=== PATIENT | female | born 1990 | race African-American/Black ===

== ENCOUNTER 2017-06-15 08:25 | Inpatient (IN) ==
[2017-06-15] MEDS ORDERED: BUTORPHANOL 1 MG/ML VIAL IV PRN (09:14)
[2017-06-15] MEDS ORDERED: LACTATED RINGERS 1,000 ML IV PRN (09:14)
[2017-06-15] MEDS ORDERED: MEPERIDINE 50 MG/1 ML VIAL IM PRN (09:14)
[2017-06-15] MEDS ORDERED: ONDANSETRON 4 MG/2 ML VIAL IV PRN (09:14)
[2017-06-15] MEDS ORDERED: PROMETHAZINE 25 MG/1 ML VIAL IM ONE (09:26)
[2017-06-15] MEDS ORDERED: fentaNYL 2 MCG/ROPIV 0.2% EPID 150 ML EPIDURAL SCH (09:26)
[2017-06-15] MEDS ORDERED: ePHEDrine 50 MG/ML AMP IV PRN (09:26)
[2017-06-15] MEDS ORDERED: FAMOTIDINE 20 MG/2 ML VIAL IV ONE (09:26)
[2017-06-15] MEDS ORDERED: diphenhydrAMINE 50 MG/1 ML VIAL IV PRN (09:26)
[2017-06-15] MEDS ORDERED: CITRIC ACID/SODIUM CITRATE 30 ML UDCUP PO ONE (09:26)
[2017-06-15] MEDS ORDERED: OXYTOCIN/LR 20 UNIT/1,000 ML BAG IV SCH (09:30)
[2017-06-15 09:42] LABS: Basophils % 0.3 % (0.0-0.8); Eosinophils # 0.1 10*3/uL (0.0-0.87); Eosinophils % 0.9 % (0.00-10.9); Hematocrit 38.5 VOL% (35.7-47.0); Hemoglobin 12.8 GM/DL (12.0-16.0); Immature Granulocytes % 0.3 %; Immature Granulocytes Absolute 0.02 #; Lymphocytes # 1.8 10*3/uL (1.4-4.0); Lymphocytes % 26.1 % (21.3-54.2); Mean Corpuscular HGB Conc 33.2 GM/DL (32-36); Mean Corpuscular Hemoglobin 30 PG (27-34); Mean Corpuscular Volume 91.2 FL (87-102); Mean Platelet Volume 11.8 FL (9.6-12.0); Monocytes # 0.7 10*3/uL (0.11-0.8); Monocytes % 10.4 % (1.7-12.7); Neutrophils # 4.2 10*3/uL (1.4-7.4); Platelet Count 158 T/CUMM (130-400); Red Blood Count 4.22 MC/CUMM (3.8-5.5); Red Cell Distribution Width 13.9 % (9.3-17.3); White Blood Count 6.7 T/CUMM (4-12)
[2017-06-15 10:02] LABS: Eosinophils 1 % (0-10); Giant Platelets Few; Hypochromasia 1+; Lymphocytes 23 % (20-55); Platelet Estimate Normal; Segmented Neutrophils 65 % (50-85); Total Cells Counted 100
[2017-06-15] MEDS: LACTATED RINGERS 1,000 ML IV SCH ×2 (10:06→12:47)
[2017-06-15 10:20] LABS: Albumin 2.8 G/DL (3.4-5.0); Bilirubin,Total 0.4 MG/DL (0.2-1.0); Calcium 9.3 MG/DL (8.5-10.1); Osmolality,Calculated 270.7 MOS/KG (273-304); Potassium 3.9 MMOL/L (3.5-5.1); Total Protein 7.2 G/DL (6.4-8.3); Uric Acid 4.1 MG/DL (2.6-6.0)
[2017-06-15] MEDS ORDERED: AMPICILLIN INJ 2,000 MG in SODIUM CHLORIDE 0.9% 100 ML IV ONE (14:26)
--- NOTE | 2017-06-15 15:20 | OB/GYN History & Physical ---
History of Present Illness Chief complaint: IN FOR ELECTIVE INDUCTION OF LABOR History of present illness: Ms. Gutierrez is a 26 year old female or complaints of uterine contractions and active labor. The risk and benefits were thoroughly discussed with this patient and significant other, plan of care was discussed with Dr. Acosta and all parties are in agreement with plan. The patient received her care through the [facility], she received routine care and her course was uneventful. She has had 2 previous vaginal deliveries and her largest infant weighed 7 pounds and 3 ounces she reported no complications with either . The patient's history is also significant for a spontaneous AB. labs: She is O+, RPR is nonreactive, hepatitis B negative rubella is immune, GBS culture negative. Review of systems is negative. Home Medications Medication Instructions Recorded Confirmed Type Pnv with Ca,No.71/Iron/FA 1 tablet PO DAILY 06/06/15 06/15/17 History [ Vitamin Tablet] Allergies Allergy/AdvReac Type Severity Reaction Status Date / Time No Known Allergies Allergy Verified 01/27/17 23:30 12 point system: reviewed and no additional remarkable complaints except as stated Medical,Surgical,& Family Hx - Medical History Medical History: noncontributory Reproductive: History of: Sexually Transmitted Disorders (CHLAMYDIA 2012) No history of: Ectopic , Complication Other: History of: Miscellaneous Medical Problems (4 pregnancies in the last 2 years) - Surgical History Surgical History: noncontributory Thoracic Surgeries: Patient denies;: Organ Transplant Reproductive Surgeries: Patient denies;: Section - Family History Family History: Reports;: Family Cancer (PATERNAL AUNT LUNG), Family Heart Disease (CHF MATERL GR MOM), Family Hypertension (PATERNAL GR.MOM AND DAD AND ALSO DAD) - Social History Smoking Status: Never smoker Frequency of Alcohol Use: None Type of Drug Use: None 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 - Constitutional Vitals: Vital Signs Temp Pulse Resp BP Pulse Ox 06/15/17 12:00 98 F 74 24 117/61 100 General appearance: normal weight - Antepartum / Post Antepartum Exam Cervix - Dilatation: 5-6 CM Effacement: 90% Station: -2 Rupture: INTACT Presentation: VTX Heart Rate: 140S Breast: bilateral: normal Abdomen obstetrics: Present: bowel sounds normal Vagina: Present: normal moisture, discharge (BLOODY SHOW) Uterus exam: Present: enlarged - Head Head exam: Present: normal inspection - Respiratory Respiratory exam: Present: clear to auscultation bilaterally - Cardiovascular Cardiovascular exam: Present: regular rate and rhythm - GI/Abdominal GI/Abdominal exam: Present: normal bowel sounds - Extremities Exam Extremities exam: Present: normal inspection - Back Exam Back exam: Present: normal inspection - Neurological Exam Neurological exam: Present: alert, oriented X3 - Psychiatric Psychiatric exam: Present: normal affect, normal mood - Skin Skin exam: Present: normal color, warm Assessment and Plan (1) Active labor Status: Acute Assessment and plan: ADMIT IV FLUIDS IV PITOCIN PER PROTOCOL EPIDURAL IF DESIRED AROM ANTICIPATE Current Visit: Yes Results - Labs CBC & BMP: 06/15/17 09:34 06/15/17 09:34 Quality Measures - VTE Contraindication to Pharmacological VTE Prophylaxis: Clinical assessment deems Pt at low risk, no prophalaxis needed
[2017-06-15] MEDS ORDERED: METHYLERGONOVINE 0.2 MG/1 ML AMP ONE (16:18)
[2017-06-15] MEDS ORDERED: CARBOPROST TROMETHAMINE 250 MCG/ML AMP IM ONE (16:18)
--- NOTE | 2017-06-15 17:23 | Event Note ---
HPI: Patient presented to the labor department in active labor. She was admitted for management of labor. The risks and benefits were thoroughly discussed with this patient and her significant other. All parties were in agreement with plan of care. Stage I: The patient was admitted she received IV fluids and IV Pitocin per protocol. She also had her membranes ruptured artificially and had clear fluid noted. She progressed in labor her tracing was a cat 1. She eventually got an epidural for pain control. The patient had a few episodes of a cat 2 tracing. She received oxygenation and position change. At some time doing her labor her Pitocin was discontinued so that she had an opportunity to recover from the cat 2 tracing. When it was determined that her fetus was stable the Pitocin was resumed and she continued to progress in labor. Stage II: Patient was complete she pushed for approximately 1 hour. The ' s head rotated and then presented at a +3 station. The patient pushes approximately 2 more times after which time the 's head was delivered. The mouth and nose were suctioned on perineum. The remainder the was delivered at 1710 a viable male was noted. The had a terminal meconium stool. Apgars were 8 at 1 minute and 9 at 5 minutes. weight was 7 lbs. 13 oz. Cord pH was obtained and sent to the lab. The was placed with the mother for skin to skin bonding. Stage III: Spontaneous delivery of cells placenta with a three-vessel cord noted. The placental site examined. Grossly intact. The vagina and cervix inspected with no tears lacerations noted. Estimated blood loss was approximately 100 cc. At the time of dictation mother and baby are stable.
[2017-06-15] MEDS ORDERED: ACETAMINOPHEN/CODEINE 300-30 MG TABLET PO PRN (17:24)
[2017-06-15 17:37] LABS: Cord Venous Blood HCO3 21.3 MMOL/L; Cord Venous Blood PCO2 59.6 MMHG; Cord Venous Blood PO2 20.8
[2017-06-15] MEDS ORDERED: MEASLES/MUMPS/RUBELLA VACCINE 0.5 ML VIAL SUBCUT ONE (21:27)
[2017-06-15] MEDS ORDERED: oxyCODONE/ACETAMINOPHEN 5-325 MG TABLET PO PRN (21:27)
[2017-06-15] MEDS ORDERED: HYDROCORTISONE 2.5% RECTAL CREAM 30 GM TUBE TOP PRN (21:27)
[2017-06-15] MEDS ORDERED: LANOLIN 50% CREAM 0.3 OZ TUBE TOP PRN (21:27)
[2017-06-15] MEDS ORDERED: WITCH HAZEL PADS 100/JAR TOP PRN (21:27)
[2017-06-15] MEDS ORDERED: RHO(D) IMMUNE GLOBULIN 300 MCG SYRINGE IM ONE (21:27)
[2017-06-15] MEDS ORDERED: BISACODYL 10 MG SUPP RECTAL PRN (21:27)
[2017-06-15] MEDS ORDERED: ACETAMINOPHEN 325 MG TABLET PO PRN (21:27)
[2017-06-15] MEDS ORDERED: DIPH/TET/ACEL PERT BOOSTER VACCINE 0.5 ML VIAL IM ONE (21:27)
[2017-06-15] MEDS ORDERED: BENZOCAINE 20%/MENTHOL 0.5% SPRAY 56 GM CAN TOP PRN (21:27)
[2017-06-15] MEDS: DOCUSATE SODIUM 100 MG CAPSULE PO SCH (23:40)
[2017-06-16] MEDS: oxyCODONE/ACETAMINOPHEN 5-325 MG TABLET PO PRN ×2 (03:44→17:41)
[2017-06-16] MEDS: IBUPROFEN 800 MG TABLET PO PRN (03:44)
[2017-06-16] MEDS: DOCUSATE SODIUM 100 MG CAPSULE PO SCH ×2 (09:31→21:33)
[2017-06-16 10:44] LABS: Basophils % 0.1 % (0.0-0.8); Eosinophils # 0.2 10*3/uL (0.0-0.87); Eosinophils % 2.1 % (0.00-10.9); Hematocrit 33.3 VOL% (35.7-47.0); Hemoglobin 11.1 GM/DL (12.0-16.0); Immature Granulocytes % 0.3 %; Immature Granulocytes Absolute 0.03 #; Lymphocytes # 2.1 10*3/uL (1.4-4.0); Lymphocytes % 23.4 % (21.3-54.2); Mean Corpuscular HGB Conc 33.3 GM/DL (32-36); Mean Corpuscular Hemoglobin 31 PG (27-34); Mean Corpuscular Volume 92.8 FL (87-102); Mean Platelet Volume 11.9 FL (9.6-12.0); Monocytes # 0.9 10*3/uL (0.11-0.8); Monocytes % 9.5 % (1.7-12.7); Neutrophils # 5.8 10*3/uL (1.4-7.4); Neutrophils % 64.6 % (38.7-73.9); Platelet Count 134 T/CUMM (130-400); Red Blood Count 3.59 MC/CUMM (3.8-5.5); Red Cell Distribution Width 14.1 % (9.3-17.3)
[2017-06-17] MEDS: IBUPROFEN 800 MG TABLET PO PRN (03:48)
[2017-06-17] MEDS: oxyCODONE/ACETAMINOPHEN 5-325 MG TABLET PO PRN (03:48)
--- NOTE | 2017-06-17 07:08 | Anesthesia Post-Op ---
Anesthesia Post OP - Post Ansesthetic Evaluation Patient seen in post op: Yes Resp: within normal limits CV: within normal limits Mental: within normal limits Temp: within normal limits [id number]: within normal limits Nausea and Vomiting: within normal limits Pain: within normal limits
[2017-06-17 07:33] VITALS: BP 109/72
[2017-06-17] MEDS: DOCUSATE SODIUM 100 MG CAPSULE PO SCH (09:30)
--- NOTE | 2017-06-17 09:36 | OB/GYN Progress Note ---
Assessment and Plan (1) Active labor Status: Acute Assessment and plan: ADMIT IV FLUIDS IV PITOCIN PER PROTOCOL EPIDURAL IF DESIRED AROM ANTICIPATE Current Visit: Yes (2) Vaginal delivery Status: Acute Assessment and plan: Routine orders. 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 Bonding well with infant. Exam MICROSYSTEMS ENGINEER - Constitutional Vitals: Vital Signs Temp Pulse Resp BP Pulse Ox 06/17/17 07:33 97.3 F L 74 20 109/72 97 06/17/17 03:48 97.2 F L 86 20 110/59 99 06/17/17 00:15 97.6 F 76 18 115/56 97 06/16/17 19:55 97.8 F 85 20 116/72 98 06/16/17 18:00 20 06/16/17 15:32 98 F 88 20 110/69 98 06/16/17 15:20 20 06/16/17 14:00 20 06/16/17 12:00 20 06/16/17 11:26 98.3 F 75 20 99/50 98 06/16/17 10:00 18 General appearance: no acute distress - Antepartum / Post Post Exam Breast: bilateral: normal Abdomen obstetrics: Present: bowel sounds normal Vagina: Present: normal moisture, discharge (Light lochia rubra) Anus/Rectum: Present: normal perianal skin - Respiratory Respiratory exam: Present: clear to auscultation bilaterally - Cardiovascular Cardiovascular exam: Present: regular rate and rhythm - GI/Abdominal GI/Abdominal exam: Present: normal bowel sounds, soft - Extremities Exam Extremities exam: Present: normal inspection - Neurological Exam Neurological exam: Present: alert, oriented X3 - Psychiatric Psychiatric exam: Present: normal affect, normal mood - Skin Skin exam: Present: normal color, warm Results - Labs CBC & BMP: 06/16/17 10:30 06/15/17 09:34
--- NOTE | 2017-06-17 09:39 | Discharge Summary ---
Hospital Course - Hospital Course Hospital Course: Ms. Gutierrez presented for elective induction of labor due to term . She subsequently delivered a viable with no complications. She has followed a normal course and she has done well. Her bleeding is minimal with no odor. Her vital signs are stable. Her lab values are stable. She is bonding well with her infant. Her fundus is firm and midline. Her perineum is intact. She will be discharged to home with prescriptions for pain and a follow-up appointment in our office. Contraception options has been discussed, patient is undecided of a method at this time. Diagnosis - Discharge Diagnosis (1) Active labor Status: Acute (2) Vaginal delivery Status: Acute Specialty Discharge - Follow Up or Referrals Follow up with: Damien Acosta MD [Primary Care Provider] - (Follow-up in 6 weeks.) Discharge Plan - Discharge Data Disposition: Disch To Home/Self Care Condition at Discharge: Stable Discharge Diet: advance to your usual diet Activity: resume usual activities as tolerated Hygiene: no restrictions Weight Bearing at Discharge: weight bear as tolerated Driving: no restrictions Contact your physician if you experience:: fever over 101, Bleeding, pain uncontrolled by pain medications - Discharge Medications New Acetamin/Codeine 300-30 Tab [Tylenol/Codeine #3] 2 tablet PO Q4H PRN #30 tablet PRN Reason: Pain Mild (1-3) Ibuprofen Tab [Motrin Tab] 800 mg PO Q6H PRN #30 tablet PRN Reason: Pain Moderate (4-7) No Action Pnv with Ca,No.71/Iron/FA [ Vitamin Tablet] 1 tablet PO DAILY - Follow Up or Referral - Forms/Instructions Exam - Constitutional Vitals: Period Temp Pulse Resp BP Sys/Perez Pulse Ox Last 24 Hr 97.2 F-98.3 F 74-88 18-20 99-116/50-72 97-99 General appearance: no acute distress - Respiratory Respiratory exam: Present: clear to auscultation bilaterally - Cardiovascular Cardiovascular exam: Present: regular rate and rhythm - GI/Abdominal GI/Abdominal exam: Present: normal bowel sounds, soft - Back Exam Back exam: Present: normal inspection - Neurological Exam Neurological exam: Present: alert, oriented X3 - Psychiatric Psychiatric exam: Present: normal affect, normal mood - Skin Skin exam: Present: normal color, warm Discharge Results Procedures and tests throughout hospitalization: Pending Orders 06/15/17 09:14 Urinalysis Routine Labs on day of discharge: Labs from last 24 hours 06/16/17 10:30 WBC 9.0 D RBC 3.59 L Hgb 11.1 L Hct 33.3 L MCV 92.8 MCH 31 MCHC 33.3 RDW 14.1 Plt Count 134 MPV 11.9 Neut % (Auto) 64.6 Lymph % (Auto) 23.4 [place] % (Auto) 9.5 Eos % (Auto) 2.1 Baso % (Auto) 0.1 Neut # (Auto) 5.8 Lymph # (Auto) 2.1 [place] # (Auto) 0.9 H Eos # (Auto) 0.2 Baso # (Auto) 0.0 Immature Gran % 0.3 Nucleated RBC % 0.0 Immature Gran # 0.03 Nucleated RBCs # 0.00 Immature Plt Fraction 0.0 DS: Provider Date of admission: 06/15/17 09:14 Primary care physician: Damien Acosta MD Attending physician on admission: Damien Acosta MD Consults: 06/15/17 09:14 Consult to Anesthesiology [CONS] Routine Consulting Provider: Reason for Anesthesiology: Epidural Consult Comment: Epidural for pain managment 06/15/17 21:27 Consult to Matrix Bath Attendant [CONS] Routine Consult Matrix Bath Attendant: Breast Feeding Discharging clinician: Sinai Holland CNM Expected date of discharge: 06/17/17
[2017-06-17] MEDS ORDERED: DIPH/TET/ACEL PERT BOOSTER VACCINE 0.5 ML VIAL IM ONE (11:25)
== END 2017-06-17 15:30 | disposition home or self-care (01) | DRG 560 ==
LOC: N.LDOUT 08:25 → N.LD 08:26 → N.OB 21:26
PROVIDERS: ADMIT Obstetrics & Gynecology; ATTEND Obstetrics & Gynecology

== ENCOUNTER 2018-09-06 06:52 | Inpatient (IN) ==
[2018-09-06] MEDS ORDERED: ONDANSETRON 4 MG/2 ML VIAL IV PRN (07:10)
[2018-09-06] MEDS ORDERED: BUTORPHANOL 1 MG/ML VIAL IV PRN (07:10)
[2018-09-06] MEDS ORDERED: MEPERIDINE 50 MG/1 ML VIAL IV PRN (07:10)
[2018-09-06] MEDS ORDERED: LACTATED RINGERS 1,000 ML IV ONE (07:10)
[2018-09-06] MEDS ORDERED: LACTATED RINGERS 500 ML IV PRN (07:10)
[2018-09-06 07:32] LABS: Basophils % 0.2 % (0.0-0.8); Eosinophils % 0.5 % (0.00-10.9); Hematocrit 38.6 VOL% (35.7-47.0); Hemoglobin 12.3 GM/DL (12.0-16.0); Immature Granulocytes % 0.2 %; Immature Granulocytes Absolute 0.01 #; Lymphocytes # 1.6 10*3/uL (1.4-4.0); Lymphocytes % 27.6 % (21.3-54.2); Mean Corpuscular HGB Conc 31.9 GM/DL (32-36); Mean Corpuscular Hemoglobin 30 PG (27-34); Mean Corpuscular Volume 93.9 FL (87-102); Mean Platelet Volume 12.2 FL (9.6-12.0); Monocytes # 0.8 10*3/uL (0.11-0.8); Monocytes % 13.8 % (1.7-12.7); Neutrophils # 3.4 10*3/uL (1.4-7.4); Neutrophils % 57.7 % (38.7-73.9); Platelet Count 152 T/CUMM (130-400); Red Blood Count 4.11 MC/CUMM (3.8-5.5); Red Cell Distribution Width 13.8 % (9.3-17.3); White Blood Count 5.9 T/CUMM (4-12)
[2018-09-06] MEDS: LACTATED RINGERS 1,000 ML IV SCH ×3 (07:35→14:22)
[2018-09-06] MEDS ORDERED: NALOXONE 0.4 MG/ML VIAL IV PRN (07:50)
[2018-09-06] MEDS ORDERED: CITRIC ACID/SODIUM CITRATE 30 ML UDCUP PO ONE (07:50)
[2018-09-06] MEDS ORDERED: hydrOXYzine HCL 25 MG/1 ML VIAL IM PRN (07:50)
[2018-09-06] MEDS ORDERED: ePHEDrine 50 MG/ML AMP IV PRN ×2 (07:50)
[2018-09-06] MEDS ORDERED: PROMETHAZINE 25 MG/1 ML VIAL IM ONE (07:50)
[2018-09-06] MEDS ORDERED: diphenhydrAMINE 50 MG/1 ML VIAL IV PRN (07:50)
[2018-09-06] MEDS ORDERED: FAMOTIDINE 20 MG/2 ML VIAL IV ONE (07:50)
[2018-09-06] MEDS ORDERED: fentaNYL 2 MCG/ROPIV 0.2% EPID 100 ML EPIDURAL SCH (08:00)
[2018-09-06] MEDS: OXYTOCIN/LR 20 UNIT/1,000 ML BAG IV SCH ×2 (08:02→15:48)
[2018-09-06 08:03] LABS: Alanine Aminotransferase 18 U/L (13-56); Albumin 2.6 G/DL (3.4-5.0); Alkaline Phosphatase 150 U/L (45-117); Aspartate Amino Transferase 24 U/L (0-37); Bilirubin,Total < 0.39 MG/DL (0.2-1.0); Blood Urea Nitrogen 9 MG/DL (7-18); Calcium 8.8 MG/DL (8.5-10.1); Glucose 95 MG/DL (74-106); Osmolality,Calculated 271.8 MOS/KG (273-304); Potassium 3.8 MMOL/L (3.5-5.1); Sodium 137 MMOL/L (136-145); Total Protein 7.5 G/DL (6.4-8.3); Uric Acid 4.1 MG/DL (2.6-6.0)
[2018-09-06] MEDS ORDERED: miSOPROStol 200 MCG TABLET ONE (10:29)
[2018-09-06] MEDS ORDERED: CARBOPROST TROMETHAMINE 250 MCG/ML AMP IM ONE (10:30)
[2018-09-06] MEDS ORDERED: METHYLERGONOVINE 0.2 MG/1 ML AMP ONE (10:30)
[2018-09-06 13:25] LABS: Cord Venous Blood HCO3 22.6 MMOL/L; Cord Venous Blood PCO2 51.2 MMHG; Cord Venous Blood PO2 28.6
[2018-09-06] MEDS ORDERED: HYDROCORTISONE 2.5% RECTAL CREAM 30 GM TUBE TOP PRN (15:09)
[2018-09-06] MEDS ORDERED: ACETAMINOPHEN/CODEINE 300-30 MG TABLET PO PRN (15:09)
[2018-09-06] MEDS ORDERED: BENZOCAINE 20%/MENTHOL 0.5% SPRAY 56 GM CAN TOP PRN (15:09)
[2018-09-06] MEDS ORDERED: oxyCODONE/ACETAMINOPHEN 5-325 MG TABLET PO PRN ×2 (15:09)
[2018-09-06] MEDS ORDERED: ACETAMINOPHEN 325 MG TABLET PO PRN (15:09)
[2018-09-06] MEDS ORDERED: BISACODYL 10 MG SUPP RECTAL PRN (15:09)
[2018-09-06] MEDS ORDERED: WITCH HAZEL PADS 100/JAR TOP PRN (15:09)
[2018-09-06] MEDS ORDERED: LANOLIN 50% CREAM 0.3 OZ TUBE TOP PRN (15:09)
[2018-09-06] MEDS ORDERED: MEASLES/MUMPS/RUBELLA VACCINE 0.5 ML VIAL SUBCUT ONE (15:30)
[2018-09-06] MEDS ORDERED: DIPH/TET/ACEL PERT BOOSTER VACCINE 0.5 ML VIAL IM ONE (15:30)
[2018-09-06] MEDS ORDERED: RHO(D) IMMUNE GLOBULIN 300 MCG SYRINGE IM ONE (15:30)
[2018-09-06] MEDS ORDERED: OXYTOCIN/LR 20 UNIT/1,000 ML BAG IV ONE (15:43)
[2018-09-06] MEDS: IBUPROFEN 800 MG TABLET PO PRN (15:47)
[2018-09-06] MEDS: DOCUSATE SODIUM 100 MG CAPSULE PO SCH (21:49)
[2018-09-07] MEDS: IBUPROFEN 800 MG TABLET PO PRN ×3 (03:36→21:42)
[2018-09-07 05:36] LABS: Basophils % 0.4 % (0.0-0.8); Eosinophils # 0.2 10*3/uL (0.0-0.87); Eosinophils % 2.3 % (0.00-10.9); Hematocrit 37.2 VOL% (35.7-47.0); Hemoglobin 11.9 GM/DL (12.0-16.0); Immature Granulocytes % 0.3 %; Immature Granulocytes Absolute 0.02 #; Lymphocytes # 2.2 10*3/uL (1.4-4.0); Lymphocytes % 28.5 % (21.3-54.2); Mean Corpuscular Hemoglobin 30 PG (27-34); Mean Corpuscular Volume 93.5 FL (87-102); Monocytes # 0.8 10*3/uL (0.11-0.8); Monocytes % 9.9 % (1.7-12.7); Neutrophils # 4.5 10*3/uL (1.4-7.4); Neutrophils % 58.6 % (38.7-73.9); Platelet Count 122 T/CUMM (130-400); Red Blood Count 3.98 MC/CUMM (3.8-5.5); Red Cell Distribution Width 13.8 % (9.3-17.3); White Blood Count 7.7 T/CUMM (4-12)
[2018-09-07] MEDS: DOCUSATE SODIUM 100 MG CAPSULE PO SCH ×2 (08:23→21:41)
[2018-09-08 07:46] VITALS: BP 109/60
[2018-09-08] MEDS: DOCUSATE SODIUM 100 MG CAPSULE PO SCH (08:42)
[2018-09-08] MEDS: IBUPROFEN 800 MG TABLET PO PRN (08:42)
== END 2018-09-08 11:30 | disposition home or self-care (01) | DRG 560 ==
LOC: N.LDOUT 06:52 → N.LD 06:55 → N.OB 18:12
PROVIDERS: ADMIT Obstetrics & Gynecology; ATTEND Obstetrics & Gynecology

== ENCOUNTER 2019-09-14 19:31 | Inpatient (IN) ==
[2019-09-14 19:54] LABS: Apearance,Urine CLEAR (Clear); Bilirubin,Urine Negative (Negative); Blood, Urine Moderate mg/dL (Negative); Glucose,Urine (UA) Negative (Negative); Ketones,Urine 5 mg/dL (Negative); Mucus,Urine Moderate /LPF (Occasional); Nitrite,Urine Negative (Negative); Protein,Urine 30 MG/DL; RBC,Urine 2 /HPF (0-4); Squamous Epithelial Cell,Urine Occasional /HPF (0-10); Urine Color Yellow (Yellow); Urine Specific Gravity 1.025 (1.001-1.035); WBC,Urine 1 /HPF (0-6)
[2019-09-14] MEDS ORDERED: OXYTOCIN/LR 20 UNIT/1,000 ML BAG IV ONE (19:56)
[2019-09-14] MEDS: LACTATED RINGERS 1,000 ML IV SCH ×2 (20:00→22:21)
[2019-09-14] MEDS ORDERED: LIDOCAINE 1% 50 ML VIAL ONE (20:11)
[2019-09-14] MEDS ORDERED: ONDANSETRON 4 MG/2 ML VIAL IV PRN (20:13)
[2019-09-14] MEDS ORDERED: LACTATED RINGERS 500 ML IV PRN (20:13)
[2019-09-14] MEDS ORDERED: MEPERIDINE 50 MG/1 ML VIAL IV PRN (20:13)
[2019-09-14] MEDS ORDERED: BUTORPHANOL 2 MG/ML VIAL IV PRN (20:13)
[2019-09-14 20:37] LABS: Basophils % 0.3 % (0.0-0.8); Eosinophils # 0.3 10*3/uL (0.0-0.87); Eosinophils % 2.4 % (0.00-10.9); Hematocrit 39.1 VOL% (35.7-47.0); Hemoglobin 12.7 GM/DL (12.0-16.0); Immature Granulocytes % 0.5 %; Immature Granulocytes Absolute 0.06 #; Lymphocytes # 2.6 10*3/uL (1.4-4.0); Lymphocytes % 22.8 % (21.3-54.2); Mean Corpuscular HGB Conc 32.5 GM/DL (32-36); Mean Platelet Volume 12.3 FL (9.6-12.0); Monocytes % 8.6 % (1.7-12.7); Neutrophils % 65.4 % (38.7-73.9); Platelet Count 198 T/CUMM (130-400); Red Blood Count 4.16 MC/CUMM (3.8-5.5); Red Cell Distribution Width 13.4 % (9.3-17.3); White Blood Count 11.4 T/CUMM (4-12)
[2019-09-14 21:49] LABS: Cord Arterial Blood HCO3 27.6 MMOL/L
[2019-09-14 21:52] LABS: Cord Venous Blood PCO2 45.1 MMHG; Cord Venous Blood PO2 36.2 MMHG
[2019-09-14] MEDS: KETOROLAC 30 MG/1 ML VIAL IV SCH (22:04)
[2019-09-14] MEDS: OXYTOCIN/LR 20 UNIT/1,000 ML BAG IV SCH ×2 (22:19→23:23)
[2019-09-14] MEDS: ACETAMINOPHEN 500 MG TABLET PO SCH (22:21)
[2019-09-15] MEDS ORDERED: LANOLIN 50% CREAM 0.3 OZ TUBE TOP PRN (00:32)
[2019-09-15] MEDS ORDERED: DIPH/TET/ACEL PERT BOOSTER VACCINE 0.5 ML VIAL IM ONE (00:32)
[2019-09-15] MEDS ORDERED: RHO(D) IMMUNE GLOBULIN 300 MCG SYRINGE IM ONE (00:32)
[2019-09-15] MEDS ORDERED: HYDROCORTISONE 2.5% RECTAL CREAM 30 GM TUBE TOP PRN (00:32)
[2019-09-15] MEDS ORDERED: MEASLES/MUMPS/RUBELLA VACCINE 0.5 ML VIAL SUBCUT ONE (00:32)
[2019-09-15] MEDS ORDERED: BISACODYL 10 MG SUPP RECTAL PRN (00:32)
[2019-09-15] MEDS ORDERED: WITCH HAZEL PADS 100/JAR TOP PRN (00:32)
[2019-09-15] MEDS ORDERED: BENZOCAINE 20%/MENTHOL 0.5% SPRAY 56 GM CAN TOP PRN (00:32)
[2019-09-15] MEDS: ACETAMINOPHEN 500 MG TABLET PO SCH ×4 (04:16→21:08)
[2019-09-15] MEDS: KETOROLAC 30 MG/1 ML VIAL IV SCH ×2 (04:17→10:09)
[2019-09-15 05:13] LABS: Basophils % 0.1 % (0.0-0.8); Eosinophils # 0.1 10*3/uL (0.0-0.87); Eosinophils % 0.8 % (0.00-10.9); Hemoglobin 11.7 GM/DL (12.0-16.0); Immature Granulocytes % 0.5 %; Immature Granulocytes Absolute 0.06 #; Lymphocytes # 1.5 10*3/uL (1.4-4.0); Lymphocytes % 11.7 % (21.3-54.2); Mean Corpuscular HGB Conc 32.5 GM/DL (32-36); Mean Corpuscular Volume 93.3 FL (87-102); Mean Platelet Volume 11.3 FL (9.6-12.0); Monocytes % 7.5 % (1.7-12.7); Neutrophils % 79.4 % (38.7-73.9); Platelet Count 169 T/CUMM (130-400); Red Blood Count 3.86 MC/CUMM (3.8-5.5); Red Cell Distribution Width 13.3 % (9.3-17.3); White Blood Count 12.4 T/CUMM (4-12)
[2019-09-15 05:42] LABS: Alanine Aminotransferase 12 U/L (13-56); Albumin 2.2 G/DL (3.4-5.0); Alkaline Phosphatase 92 U/L (45-117); Aspartate Amino Transferase 18 U/L (0-37); Bilirubin,Total < 0.39 MG/DL (0.2-1.0); Blood Urea Nitrogen 4 MG/DL (7-18); Estimated Glom Filtration Rate 176 ML/MIN; Glucose 106 MG/DL (74-106); Osmolality,Calculated 277.3 MOS/KG (273-304); Total Protein 6.5 G/DL (6.4-8.3); Uric Acid 2.8 MG/DL (2.6-6.0)
[2019-09-15] MEDS: DOCUSATE SODIUM 100 MG CAPSULE PO SCH ×2 (10:07→21:08)
[2019-09-15] MEDS: IBUPROFEN 800 MG TABLET PO SCH (17:11)
[2019-09-15] MEDS ORDERED: IBUPROFEN 800 MG TABLET PO SCH (21:30)
[2019-09-16] MEDS: IBUPROFEN 800 MG TABLET PO SCH ×2 (01:52→13:58)
[2019-09-16] MEDS: ACETAMINOPHEN 500 MG TABLET PO SCH ×2 (04:32→13:58)
[2019-09-16 09:50] VITALS: BP 123/68
[2019-09-16] MEDS: DOCUSATE SODIUM 100 MG CAPSULE PO SCH (13:58)
== END 2019-09-16 13:55 | disposition home or self-care (01) | DRG 560 ==
LOC: N.LDOUT 19:31 → N.LD 19:33 → N.OB 09-15 00:16
PROVIDERS: ADMIT Obstetrics & Gynecology; ATTEND Obstetrics & Gynecology

== ENCOUNTER 2020-10-10 23:56 | Inpatient (IN) ==
[2020-10-11 00:48] LABS: Bilirubin,Urine Negative (Negative); Blood, Urine Negative (Negative); Calcium Oxalate Crystals,Urine Moderate /HPF (Few); Glucose,Urine (UA) Negative (Negative); Ketones,Urine Negative (Negative); Mucus,Urine Occasional /LPF (Occasional); Nitrite,Urine Negative (Negative); Protein,Urine Negative; Squamous Epithelial Cell,Urine Occasional /HPF (0-10); Urine Appearance Slightly Hazy (Clear); Urine Color Yellow (Yellow); Urine Specific Gravity 1.019 (1.001-1.035); WBC,Urine 5 /HPF (0-6)
[2020-10-11] MEDS ORDERED: MEPERIDINE 50 MG/1 ML VIAL IV PRN (01:30)
[2020-10-11] MEDS ORDERED: ONDANSETRON 4 MG/2 ML VIAL IV PRN ×3 (01:30→13:24)
[2020-10-11] MEDS ORDERED: LACTATED RINGERS 1,000 ML IV SCH ×2 (01:30→06:00)
[2020-10-11] MEDS ORDERED: MEPERIDINE 50 MG/1 ML VIAL ONE (01:32)
[2020-10-11] MEDS ORDERED: ONDANSETRON 4 MG/2 ML VIAL ONE (01:32)
[2020-10-11] MEDS ORDERED: LEVOFLOXACIN INJ 500 MG in PREMIX 1 EACH IV ONE (02:00)
[2020-10-11] MEDS ORDERED: LACTATED RINGERS 500 ML IV PRN (05:59)
[2020-10-11] MEDS ORDERED: BUTORPHANOL 2 MG/ML VIAL IV PRN (05:59)
[2020-10-11] MEDS ORDERED: diphenhydrAMINE 50 MG/1 ML VIAL IV PRN ×2 (06:04)
[2020-10-11] MEDS ORDERED: ONDANSETRON 4 MG/2 ML VIAL IV ONE (06:04)
[2020-10-11] MEDS ORDERED: CITRIC ACID/SODIUM CITRATE 30 ML UDCUP PO ONE (06:04)
[2020-10-11] MEDS ORDERED: NALOXONE 0.4 MG/ML VIAL IV PRN (06:04)
[2020-10-11] MEDS ORDERED: hydrOXYzine HCL 25 MG/1 ML VIAL IM PRN (06:04)
[2020-10-11] MEDS ORDERED: FAMOTIDINE 20 MG/2 ML VIAL IV ONE (06:04)
[2020-10-11] MEDS ORDERED: LACTATED RINGERS 1,000 ML IV ONE (06:04)
[2020-10-11] MEDS ORDERED: PROMETHAZINE 25 MG/1 ML VIAL IM ONE (06:04)
[2020-10-11] MEDS ORDERED: ePHEDrine 50 MG/ML VIAL IV PRN (06:04)
[2020-10-11] MEDS ORDERED: fentaNYL 2 MCG/ROPIV 0.2% EPID 100 ML EPIDURAL SCH (06:30)
[2020-10-11 06:34] LABS: Basophils % 0.1 % (0.0-0.8); Eosinophils # 0.1 10*3/uL (0.0-0.87); Eosinophils % 0.8 % (0.00-10.9); Hematocrit 34.8 VOL% (35.7-47.0); Hemoglobin 11.4 GM/DL (12.0-16.0); Immature Granulocytes % 0.4 %; Immature Granulocytes Absolute 0.03 #; Lymphocytes # 1.7 10*3/uL (1.4-4.0); Mean Corpuscular HGB Conc 32.8 GM/DL (32-36); Mean Corpuscular Volume 92.3 FL (87-102); Mean Platelet Volume 12.1 FL (9.6-12.0); Monocytes % 11.4 % (1.7-12.7); Neutrophils % 63.3 % (38.7-73.9); Platelet Count 134 T/CUMM (130-400); Red Blood Count 3.77 MC/CUMM (3.8-5.5); Red Cell Distribution Width 13.7 % (9.3-17.3); White Blood Count 7.2 T/CUMM (4-12)
[2020-10-11 06:57] LABS: Alanine Aminotransferase 12 U/L (13-56); Albumin 2.5 G/DL (3.4-5.0); Alkaline Phosphatase 105 U/L (45-117); Aspartate Amino Transferase 12 U/L (0-37); Bilirubin,Total < 0.39 MG/DL (0.2-1.0); Blood Urea Nitrogen 6 MG/DL (7-18); Calcium 8.8 MG/DL (8.5-10.1); Estimated Glom Filtration Rate 176 ML/MIN; Glucose 86 MG/DL (74-106); Osmolality,Calculated 269.8 MOS/KG (273-304); Total Protein 7.2 G/DL (6.4-8.3)
[2020-10-11 07:08] LABS: Eosinophils 1 % (0-10); Lymphocytes 30 % (20-55); Platelet Estimate Normal; Segmented Neutrophils 61 % (50-85); Total Cells Counted 100
[2020-10-11] MEDS ORDERED: OXYTOCIN/LR 20 UNIT/1,000 ML BAG IV SCH (08:30)
[2020-10-11] MEDS ORDERED: METHYLERGONOVINE 0.2 MG/1 ML AMP ONE (13:03)
[2020-10-11] MEDS ORDERED: miSOPROStoL 200 MCG TABLET ONE (13:03)
[2020-10-11] MEDS ORDERED: DIPH/TET/ACEL PERT BOOSTER VACCINE 0.5 ML VIAL IM ONE (13:24)
[2020-10-11] MEDS ORDERED: ACETAMINOPHEN 325 MG TABLET PO PRN (13:24)
[2020-10-11] MEDS ORDERED: oxyCODONE/ACETAMINOPHEN 5-325 MG TABLET PO PRN (13:24)
[2020-10-11] MEDS ORDERED: WITCH HAZEL PADS 100/JAR TOP PRN (13:24)
[2020-10-11] MEDS ORDERED: BENZOCAINE 20%/MENTHOL 0.5% SPRAY 56 GM CAN TOP PRN (13:24)
[2020-10-11] MEDS ORDERED: MEASLES/MUMPS/RUBELLA VACCINE 0.5 ML VIAL SUBCUT ONE (13:24)
[2020-10-11] MEDS ORDERED: LANOLIN 50% CREAM 0.3 OZ TUBE TOP PRN (13:24)
[2020-10-11] MEDS ORDERED: HYDROCORTISONE 2.5% RECTAL CREAM 30 GM TUBE TOP PRN (13:24)
[2020-10-11] MEDS ORDERED: BISACODYL 10 MG SUPP RECTAL PRN (13:24)
[2020-10-11] MEDS ORDERED: OXYTOCIN/LR 20 UNIT/1,000 ML BAG IV ONE (13:24)
[2020-10-11] MEDS ORDERED: RHO(D) IMMUNE GLOBULIN 300 MCG SYRINGE IM ONE (13:24)
[2020-10-11 13:29] LABS: Cord Arterial Blood HCO3 24.3 MMOL/L
[2020-10-11 13:30] LABS: Cord Venous Blood HCO3 26.9 MMOL/L; Cord Venous Blood PCO2 49.1 MMHG; Cord Venous Blood PO2 35.8 MMHG
[2020-10-11] MEDS: IBUPROFEN 800 MG TABLET PO PRN (16:09)
[2020-10-11] MEDS: oxyCODONE/ACETAMINOPHEN 5-325 MG TABLET PO PRN (17:38)
[2020-10-12] MEDS: oxyCODONE/ACETAMINOPHEN 5-325 MG TABLET PO PRN ×2 (03:45→09:12)
[2020-10-12 06:13] LABS: Basophils % 0.2 % (0.0-0.8); Eosinophils # 0.2 10*3/uL (0.0-0.87); Eosinophils % 1.8 % (0.00-10.9); Hematocrit 37.1 VOL% (35.7-47.0); Immature Granulocytes % 0.5 %; Immature Granulocytes Absolute 0.04 #; Lymphocytes # 1.5 10*3/uL (1.4-4.0); Lymphocytes % 17.7 % (21.3-54.2); Mean Corpuscular HGB Conc 32.3 GM/DL (32-36); Mean Corpuscular Volume 93.7 FL (87-102); Mean Platelet Volume 12.6 FL (9.6-12.0); Monocytes % 9.4 % (1.7-12.7); Neutrophils % 70.4 % (38.7-73.9); Platelet Count 125 T/CUMM (130-400); Red Blood Count 3.96 MC/CUMM (3.8-5.5); Red Cell Distribution Width 13.6 % (9.3-17.3); White Blood Count 8.4 T/CUMM (4-12)
[2020-10-12 07:23] LABS: Eosinophils 2 % (0-10); Lymphocytes 18 % (20-55); Segmented Neutrophils 76 % (50-85); Total Cells Counted 100
[2020-10-12 07:24] LABS: Hypochromasia 1+; Microcytosis 1+
[2020-10-12 07:25] LABS: Platelet Estimate Adequate
[2020-10-12] MEDS: IBUPROFEN 800 MG TABLET PO PRN ×2 (09:12→20:14)
[2020-10-12] MEDS: DOCUSATE SODIUM 100 MG CAPSULE PO SCH ×2 (09:12→20:14)
[2020-10-13] MEDS ORDERED: ACETAMINOPHEN/CODEINE 300-30 MG TABLET PO PRN ×2 (03:30)
[2020-10-13] MEDS: IBUPROFEN 800 MG TABLET PO PRN (05:38)
[2020-10-13] MEDS: DOCUSATE SODIUM 100 MG CAPSULE PO SCH (08:32)
[2020-10-13] MEDS ORDERED: DIPH/TET/ACEL PERT BOOSTER VACCINE 0.5 ML VIAL IM ONE (11:28)
[2020-10-13 14:04] VITALS: BP 124/55
== END 2020-10-13 14:50 | disposition home or self-care (01) | DRG 560 ==
LOC: N.LDOUT 23:56 → N.LD 23:59 → N.OB 10-12 10:23
PROVIDERS: ADMIT Obstetrics & Gynecology; ATTEND Obstetrics & Gynecology